=== PATIENT | male | born 1955 | race Caucasian/White ===

== ENCOUNTER → 2016-08-07 | Outpatient (CLI) | payer OTHER ==
[~2016-08-07] MED LIST: ASPI81TA28 PO; CRS5 PO; GLIM2TAB2 PO; GLUC10007 PO; LSN5 PO; METF1TAB85 PO; OMEG10007 PO; TPRSR50 PO
[2016-08-07 19:02] LABS: LYME DISEASE AB IGG NEG (NEG); LYME DISEASE AB IGM NEG (NEG)
== END | disposition home or self-care (01) ==
LOC: C.LABBC 14:59
PROVIDERS: ATTEND Internal Medicine
DX: S40.862A Insect bite (nonvenomous) of left upper arm, initial encounter (principal); W57.XXXA Bitten or stung by nonvenomous insect and other nonvenomous arthropods, initial encounter

== ENCOUNTER → 2016-11-11 | Outpatient (CLI) | payer OTHER ==
[2016-11-11 14:01] LABS: ESTIMATED AVERAGE GLUCOSE 146 mg/dl; HA1C FLAG Normal (Normal)
[2016-11-11 14:20] LABS: ALT/SGPT 37 U/L (12-78); AST/SGOT 12 U/L (15-37); BLOOD UREA NITROGEN 15 mg/dl (7-18); BUN/CREATININE RATIO 13.6 (10-20); CALCIUM 8.9 mg/dl (8.5-10.1); CARBON DIOXIDE 27 mmol/L (21-32); CHLORIDE 106 mmol/L (98-107); GLUCOSE 147 mg/dl (70-99); POTASSIUM 4.6 mmol/L (3.5-5.1); SODIUM 136 mmol/L (136-145)
[2016-11-11 14:25] LABS: ALB/GLOB RATIO 1.1 (0.9-2); ALKALINE PHOSPHATASE 64 U/L (45-117); CHOLESTEROL 210 mg/dl (0-200); CHOLESTEROL/HDL RATIO 4.2; HDL CHOLESTEROL 50 mg/dl; LDL CHOLESTEROL CALCULATED 132 mg/dl; TRIGLYCERIDES 141 mg/dl (0-150); VERY LOW DENSITY LIPOPROT CALC 28 mg/dl
== END | disposition home or self-care (01) ==
LOC: C.LABBC 09:39
PROVIDERS: ATTEND Internal Medicine
DX: E78.5 Hyperlipidemia, unspecified (principal); M79.1 Myalgia; E11.9 Type 2 diabetes mellitus without complications

== ENCOUNTER → 2017-02-18 | Outpatient (CLI) | payer OTHER ==
--- NOTE | 2017-02-18 10:52 | DIAGNOSTIC IMAGING REPORT ---
CHEST 2 VIEWS ROUTINE HISTORY: COUGH COMPARISON: Chest 12/20/2014. FINDINGS: Mild diffuse interstitial thickening which remains unchanged. Therefore, this is likely chronic. No new focal lung consolidations. No evidence for pulmonary edema.. Cardiac silhouette is top normal in size. No pleural effusions. No pneumothorax. IMPRESSION: No significant change compared to the prior study. No acute process. Electronically signed by: Erick Daley M.D. 02/18/2017 10:51 AM Dictated Date/Time: 02/18/2017 10:49 AM
== END | disposition home or self-care (01) ==
LOC: C.RADBC 10:34
PROVIDERS: ATTEND Nurse Practitioner Adult Health
DX: R05 Cough (principal)

== ENCOUNTER → 2017-03-04 | Outpatient (CLI) | payer OTHER ==
[2017-03-04 15:38] LABS: BASO % 0.3 %; BASO ABS # 0.03 K/uL (0-0.2); COMPLETE YES; EOS % 1.4 %; HEMATOCRIT 40.2 % (42-52); IG% 0.3 %; LYMPH % 22.5 %; LYMPH ABS # 2.21 K/uL (1.2-3.4); MEAN CELL VOLUME 92.8 fL (80-100); MEAN CORPUSCULAR HEMOGLOBIN 31.9 pg (25-34); MEAN CORPUSCULAR HGB CONC 34.3 g/dl (32-36); MEAN PLATELET VOLUME 8.8 fL (7.4-10.4); NEUT % 65.5 %; PLATELET COUNT 329 K/uL (130-400); RED BLOOD COUNT 4.33 M/uL (4.7-6.1); WHITE BLOOD COUNT 9.81 K/uL (4.8-10.8)
[2017-03-04 15:44] LABS: ALT/SGPT 27 U/L (12-78); BLOOD UREA NITROGEN 10 mg/dl (7-18); BUN/CREATININE RATIO 10.2 (10-20); CALCIUM 9.2 mg/dl (8.5-10.1); CARBON DIOXIDE 29 mmol/L (21-32); CHLORIDE 98 mmol/L (98-107); GLUCOSE 153 mg/dl (70-99); POTASSIUM 4.1 mmol/L (3.5-5.1); SODIUM 131 mmol/L (136-145)
[2017-03-04 15:48] LABS: ALB/GLOB RATIO 0.7 (0.9-2); ALKALINE PHOSPHATASE 81 U/L (45-117); AST/SGOT 14 U/L (15-37); RHEUMATOID FACTOR < 10.0 U/mL (0-15)
[2017-03-04 16:20] LABS: LYME DISEASE AB IGG NEG (NEG)
[2017-03-04 16:21] LABS: LYME DISEASE AB IGM POS (NEG)
[2017-03-05 06:41] LABS: ESTIMATED AVERAGE GLUCOSE 157 mg/dl; HA1C FLAG Normal (Normal)
== END | disposition home or self-care (01) ==
LOC: C.LABBC 10:36
PROVIDERS: ATTEND Internal Medicine
DX: G47.33 Obstructive sleep apnea (adult) (pediatric) (principal); S40.862A Insect bite (nonvenomous) of left upper arm, initial encounter; W57.XXXA Bitten or stung by nonvenomous insect and other nonvenomous arthropods, initial encounter

== ENCOUNTER → 2017-11-11 | Outpatient (CLI) | payer OTHER ==
[~2017-11-11] MED LIST changes: +LISI-730 PO; -LSN5 PO
[2017-11-11 13:12] LABS: BLOOD UREA NITROGEN 11 mg/dl (7-18); CREATININE 0.99 mg/dl (0.60-1.40)
== END | disposition home or self-care (01) ==
LOC: C.LABBC 11:36
PROVIDERS: ATTEND Physician Assistant
DX: H91.8X2 Other specified hearing loss, left ear (principal)

== ENCOUNTER 2024-10-25 21:11 | Inpatient (IN) ==
--- NOTE | 2024-10-25 21:31 | Emergency Department Note ---
Impression & Plan Acute hyponatremia, Transaminitis, Elevated bilirubin, Abdominal pain ED Provider Note NAME: LUIS AGUILAR AGE: 69 SEX: M : 1955 ARRIVES VIA: Walk-In INFORMANT: Patient ED PROVIDER(S): Deshaun Lara DO CHIEF COMPLAINT: Abdominal pain and jaundice HPI: Patient is a 69-year-old male with past medical history of diabetes and CA who presents to the ER for jaundice. Patient notes that he had a cholecystectomy last week. notes and provides additional history that patient was jaundice starting today. He has had some belly pain in the right upper quadrant off and on. Denies any headache or change in vision. No chest pain or shortness of breath. No dysuria, urgency or frequency. No other exacerbating or remitting factors. ADDITIONAL HISTORY OBTAINED: Per HPI Chronic Medical/Social Conditions Affecting Care: Per HPI PAST MEDICAL HISTORY:See Below PAST SURGICAL HISTORY:See Below FAMILY HISTORY:See Below SOCIAL HISTORY:See Below HOME MEDICATIONS:See Below ALLERGIES:See Below VITALS:See Below PHYSICAL EXAMINATION: GENERAL: Sitting up in bed, alert, diffuse jaundice EYE EXAM: Scleral icterus OROPHARYNX: no exudate, no erythema, lips, buccal mucosa, and tongue normal and mucous membranes are moist NECK: supple, no nuchal rigidity, no adenopathy, non-tender LUNGS: Clear to auscultation. Normal chest wall mechanics HEART: no murmurs, S1 normal and S2 normal ABDOMEN: abdomen soft, mild diffuse tenderness. Incisions are clean dry and intact, normo-active bowel sounds, no masses, no rebound or guarding. UPPER EXTREMITIES: upper extremities are grossly normal. LOWER EXTREMITIES: No pitting edema. NEURO EXAM: Normal sensorium, cranial nerves II-XII grossly intact, normal speech, no gross weakness of arms, no gross weakness of legs. MEDICAL DECISION MAKING: Patient is a 69-year-old male who presents ER for elevated bilirubin. He is status post lap juanpablo performed by Dr. Raya last week. Noticed that he is currently jaundiced consult and came in. Had some worsening abdominal pain. Bilirubin is elevated around 17. LFTs elevated around 500. Sodium was low at 122. No significant leukocytosis. Discussed with general surgery they recommended MRCP and likely transfer. Discussed with GI and they recommended transfer. Patient was given a dose of Zosyn although I do not believe patient is infected at this time but given prophylactically. Discussed with the patient and they would prefer to go to [facility]. Consults at [facility] GI Dr. Pacheco who agreed the patient needs to be transferred as there is no ERCP capabilities here. Discussed with Dr. Levy from the hospital service at [facility] and patient was accepted. Per the transfer center there will be no beds tonight. Patient was updated at bedside. Patient will be admitted to the hospital service and transferred later tomorrow when beds are present. Consults/Care Managements Discussions: Per MDM Triage Nursing notes reviewed. Limited review of prior medical records performed Vital Signs: reviewed and remarkable for HTN Differential diagnosis: Differential diagnoses includes but is not limited to gastritis, peptic ulcer disease, GERD, gallbladder disease, pancreatitis, small bowel obstruction, appendicitis, diverticulitis, hernia, urinary tract infection, torsion, perforation, trauma, infectious. ER treatment provided: See below Diagnostics interpreted by me include EKG and cardiac monitoring as listed below: -Cardiac Monitoring: An order was placed for continuous cardiac monitoring. The monitor shows a rate of 70 with sinus rhythm. -ECG: none -Laboratory studies:Interpreted by me as stated above in MDM and shown below. Imaging studies: Xrays: As interpreted by me:none CTs show: CT of the abdomen pelvis per my pleurae interpretation shows no obvious bowel obstruction CT abdomen pelvis per radiologist described above Procedures:none Critical Care: None Past Med/Surg History Problem List (Updated 10/26/24 @ 01:02 by Deshaun Lara DO) Abdominal pain (Acute) Elevated bilirubin (Acute) Transaminitis (Acute) Acute hyponatremia (Acute) History of cholecystectomy Cholelithiasis Encounter for pre-operative examination Transaminitis (Acute) Abnormal CT scan, gallbladder Abdominal bruit Noted by cardiology - had subsequent aorti-iliac arterial duplex 08/10/24- showed 3.3 x 3.4cm AAA, no stenosis or obstruction observed in Ao-iliac system Microalbuminuria History of radiation to head and neck region History of squamous cell carcinoma Left knee pain Left hip pain Type 2 diabetes mellitus Obstructive sleep apnea cpap Anemia, unspecified ASCVD (arteriosclerotic cardiovascular disease) Inferior CA 2014--follows with Dr. Saldaña Hyperlipidemia History of colon polyps Medical History (Updated 10/26/24 @ 01:02 by Deshaun Lara DO) AAA (abdominal aortic aneurysm) Aorti-iliac arterial duplex 08/10/24- showed 3.3 x 3.4cm AAA, no stenosis or obstruction observed in Ao-iliac system Chronic hyponatremia Choledocholithiasis - Admitted to [facility] as transfer from [facility]- ERCP 10/05/24 at [facility]- per [facility] records- recommending outpatient juanpablo Hyperlipidemia Hx of myocardial infarction (2014) 2015--heart cath, no stents-follows with Dr. Saldaña ASCVD (arteriosclerotic cardiovascular disease) follows w/ Dr Saldaña- had recent echo 09/27/2024 History of anemia denies current issues JULIO CESAR (obstructive sleep apnea) states lost weight after cancer treatments, so has resolved but still uses CPAP Diabetes well controlled, last A1C 5.8, per patient History of radiation to head and neck region (2020) 33 treatments Seasonal allergies reason for prn inhaler, rare use prn inhaler - last used 2 years ago Changing skin lesion Squamous cell carcinoma of oropharynx (2020) hx- 2020- s/p chemo XRT Dry mouth severe dry mouth s/p chemotherapy & radiation treatments. - current History of chemotherapy (01/2021) January 2021. Allergic rhinitis History of anesthesia reaction - difficulty waking - ERCP (10/05/24) - had 3 days of feeling "off balance"- has now resolved Osteoarthritis Sensorineural hearing loss (SNHL) of both ears Eczema occ flares Asymmetrical left sensorineural hearing loss Surgical History (Updated 10/26/24 @ 00:45 by Tyesha Eugene PA-C) Hx of endoscopic retrograde cholangiopancreatography (10/05/24) [facility]- states took over 2 hours as difficulty getting to bile duct- afterwards, had balance issue for a few days after, has now resolved History of cataract surgery (2021) Right/Left History of cardiac cath (~12/21/14) CA-@ [facility]--no stents- follows with dr. saldaña History of tooth extraction on prophylactic abx every other day since 12/2023 ( last dental extraction) History of hydrocelectomy as a child History of colonoscopy with polypectomy (08/26/24) History of wisdom tooth extraction Family History Unknown Unknown family medical history Mother Myocardial infarction Diabetes Father No problems noted. Other Adopted Social History (Updated 10/17/24 @ 06:58 by Porsche Mendoza CRNA) Smoking Status: Never smoker Tobacco Type: Cigarettes Cigarettes Per Day: smokes a pipe- advised; Second Hand Exposure: No; Do You Dip or Chew Tobacco: No; Hx Alcohol Use: Yes Alcohol type: beer Alcohol Intake Frequency: 4 or More x per/Week Hx Substance Use: No Preferred Language: Kazakh Communication Ability: Effective Visual Impairment: Limited Hearing Ability: Normal Skein Washer Required: No Beliefs That Will Affect Care: None marital status: Current Living Situation: Spouse current occupational status: retired current occupation: customer service How many Children do You have: 0 Feels Safe at Home: Yes Childhood Exposure to Second-Hand Smoke: Yes Diet: regular caffeine: Yes during the past year weight has: decreased > 10 lbs Dental Care, Regularly: Yes Physical Activity Frequency: 3-4 Times per Week Seatbelt Use: always Sunscreen Use: No Assistive Devices: Glasses Allergies Allergies Allergy/AdvReac Type Severity Reaction Status Date / Time atorvastatin AdvReac Intermediate MYALGIA Verified 10/12/24 12:14 rosuvastatin AdvReac Intermediate myalgia Verified 10/12/24 12:14 simvastatin AdvReac Intermediate MYALGIA Verified 10/12/24 12:14 Home Meds Home Medications Medication Instructions Recorded Confirmed aspirin 81 mg tablet 81 mg PO QAM #30 tabs 10/20/18 10/26/24 cetirizine 10 mg capsule (Zyrtec) 10 mg PO HS 10/20/18 10/26/24 coenzyme Q10 100 mg capsule 100 mg PO QAM 10/20/18 10/26/24 triamcinolone acetonide 55 mcg 2 sprays intranasal 06/02/19 10/26/24 nasal spray aerosol (Nasacort) pravastatin 40 mg tablet 40 - 80 mg PO QAM 10/12/24 10/26/24 ezetimibe 10 mg tablet (Zetia) 10 mg PO QAM 10/17/24 10/26/24 whizkramtah-ufb-ihumkyikf-vitC 1 cap PO QPM 10/26/24 10/26/24 capsule (Glucosamine Complex-MSM capsule) omega-3 fatty acids 1,000 mg 1,000 mg PO QPM 10/26/24 10/26/24 capsule Previous Rx's Medication Instructions Recorded CPAP Machine #1 ea 06/05/22 albuterol sulfate 90 mcg/actuation 2 puff inhalation Q6H PRN 08/02/24 aerosol inhaler shortness of breath or wheezing #8.5 grams nitroglycerin 0.4 mg sublingual 0.4 mg sublingual Q5M PRN chest 08/02/24 tablet pain #25 tabs CPAP Supplies #1 ea 08/04/24 metformin 500 mg tablet,extended 1,000 mg (2 x 500 mg) PO BID 90 08/31/24 release 24 hr days #360 tabs metoprolol succinate 100 mg 100 mg PO QAM #90 tabs 10/04/24 tablet,extended release 24 hr Results & Data (ED) Vital Signs Vital Signs - 24 hr 10/25/24 21:13 10/25/24 21:21 10/25/24 21:24 Temperature 36.5 C 36.8 C Temperature Source Temporal Artery Scan Oral Pulse Rate 70 71 Pulse Rate [Right Finger] 69 Pulse Rate from SpO2 Sensor Pulse Rhythm Regular Regular Pulse Rhythm [Right Finger] Regular Pulse Strength Normal Respiratory Rate 20 16 16 Respiratory Effort / Characteristics Non-Labored Spontaneous Respiratory Depth Normal Normal Respiratory Pattern Regular Blood Pressure 154/71 H Blood Pressure [Right Arm] 156/73 H Blood Pressure Mean 98 Blood Pressure Mean [Right Arm] 100 Blood Pressure Position Sitting Pulse Oximetry 99 99 100 Oxygen Delivery Method Room Air Room Air Room Air Sepsis Recent Fever Within 48 Hours No Sepsis New/Unexplained Change in Mental Status No Sepsis Action Taken by Nursing No Action Required 10/25/24 21:35 10/25/24 22:57 10/25/24 23:00 Temperature Temperature Source Pulse Rate 68 63 Pulse Rate [Right Finger] Pulse Rate from SpO2 Sensor 63 Pulse Rhythm Pulse Rhythm [Right Finger] Pulse Strength Respiratory Rate 19 Respiratory Effort / Characteristics Respiratory Depth Respiratory Pattern Blood Pressure 136/71 Blood Pressure [Right Arm] Blood Pressure Mean 85 Blood Pressure Mean [Right Arm] Blood Pressure Position Pulse Oximetry 99 Oxygen Delivery Method Room Air Sepsis Recent Fever Within 48 Hours Sepsis New/Unexplained Change in Mental Status Sepsis Action Taken by Nursing 10/26/24 00:01 10/26/24 00:15 Temperature Temperature Source Pulse Rate 63 Pulse Rate [Right Finger] Pulse Rate from SpO2 Sensor 63 Pulse Rhythm Pulse Rhythm [Right Finger] Pulse Strength Respiratory Rate 19 Respiratory Effort / Characteristics Respiratory Depth Respiratory Pattern Blood Pressure 134/69 Blood Pressure [Right Arm] Blood Pressure Mean 74 Blood Pressure Mean [Right Arm] Blood Pressure Position Pulse Oximetry 99 Oxygen Delivery Method Room Air Sepsis Recent Fever Within 48 Hours Sepsis New/Unexplained Change in Mental Status Sepsis Action Taken by Nursing Laboratory Data 10/25/24 21:35 10/25/24 21:35 Lab Results 10/25/24 10/25/24 10/25/24 Range/Units 21:35 21:42 Unknown WBC 6.00 (4.8-10.8) K/ul RBC 4.15 L (4.70-6.10) M/uL Hgb 13.5 L (14.0-18.0) g/dl POC Hgb 15.0 (14.0-18.0) g/dl Hct 36.0 L (42.0-52.0) % POC Hct 44 (42-52) % MCV 86.7 (80.0-100.0) fL MCH 32.5 (25.0-34.0) pg MCHC 37.5 H (32.0-36.0) g/dL RDW Std Deviation 48.2 H (36.4-46.3) fL RDW Coeff of Aminata 15.2 H (11.5-14.5) % Plt Count 375 (130-400) K/uL MPV 8.5 L (9.4-12.4) fL Immature Gran % (Auto) 1.7 % Neut % (Auto) 73.3 % Lymph % (Auto) 6.7 % Walsh % (Auto) 13.3 % Eos % (Auto) 5.0 % Baso % (Auto) 0.0 % Neut # (Auto) 4.40 (1.40-6.50) K/uL Lymph # (Auto) 0.40 L (1.20-3.40) K/uL Walsh # (Auto) 0.80 H (0.11-0.59) K/uL Eos # (Auto) 0.30 (0.00-0.50) K/uL Baso # (Auto) 0.00 (0.00-0.20) K/uL Immature Gran # (Auto) 0.10 (0.01-0.20) K/uL Anisocytosis Present Target Cells 1+ POC Sodium 123 L (135-144) mmol/L Sodium 122 L (136-145) mmol/L POC Potassium 4.6 (3.3-5.0) mmol/L Potassium 4.6 (3.5-5.1) mmol/L POC Chloride 89 L (101-112) mmol/L Chloride 87 L (98-107) mmol/L Carbon Dioxide 24 (21-32) mmol/L POC Total CO2 25 (24-31) mmol/L Anion Gap 11 (3-11) POC Anion Gap 15.0 L (16-25) mmol/L POC BUN 19 H (7-18) mg/dl BUN 18 (6-23) mg/dl Creatinine 0.95 (0.6-1.4) mg/dl POC Creatinine 0.9 (0.6-1.3) mg/dl Est Cr Clr Drug Dosing 81.1 ml/min eGFR 86.11 BUN/Creatinine Ratio 18.9 (10-20) Glucose 162 H (70-99(Fasting)) mg/dl POC Glucose (other) 156 H (70-99) mg/dl Calcium 9.5 (8.6-10.3) mg/dl POC Ioniz Calcium Macario 1.17 (1.12-1.32) mmol/l Total Bilirubin 16.8 H (0.2-1.0) mg/dl AST 436 H (13-39) U/L ALT 589 H (7-52) U/L Alkaline Phosphatase 1218 H (34-104) U/L Total Protein 6.8 (6.0-8.3) gm/dl Albumin 3.7 (3.4-5.0) gm/dl Globulin 3.1 (2.5-4.0) gm/dl Albumin/Globulin Ratio 1.2 (0.9-2) Lipase TNP Urine Comment Administered Medications Discontinued Medications Ioversol (Optiray 320 100ml) 90 ml IV ONCE ONE Stop: 10/25/24 22:03 Last Admin: 10/25/24 22:03 Dose: 90 ml Documented By: OTILIA Imaging Data Radiologist's Impression: Abdomen/Pelvis CT 10/25/24 21:25 Exam(s): CT ABDOMEN + PELVIS With Contrast IV Amt: 90 ml optiray 320 EXAM: CT Abdomen and Pelvis With Intravenous Contrast CLINICAL HISTORY: Reason for exam: post op pain. TECHNIQUE: Axial computed tomography images of the abdomen and pelvis with intravenous contrast. CTDI is 26.14 mGy and DLP is 1236.28 mGy-cm. Automated exposure control was utilized for the study. A dose lowering technique was utilized adhering to the principles of ALARA. CONTRAST: Patient received 90 ml optiray 320 of IV contrast COMPARISON: 10/04/2024 FINDINGS: Lung bases: Unremarkable. No mass. No consolidation. ABDOMEN: Liver: Unremarkable. No mass. Gallbladder and bile ducts: Postop changes prior cholecystectomy this is new when compared with the prior exam. There is intra and extrahepatic biliary ductal dilatation which is greater than expected given the patient's operative state. The common bile duct measures 1.5 cm. Hyperdense material seen within the proximal duodenum may represent surgical clips. Pancreas: Unremarkable. No mass. No ductal dilation. Spleen: Unremarkable. No splenomegaly. Adrenals: Unremarkable. No mass. Kidneys and ureters: Unremarkable. No solid mass. No hydronephrosis. Stomach and bowel: There are number of fluid-filled hyperemic loops of small bowel within the right lower quadrant. No obstruction. No mucosal thickening. PELVIS: Appendix: No findings to suggest acute appendicitis. Bladder: Unremarkable. No mass. Reproductive: Enlarged partially calcified prostate. ABDOMEN and PELVIS: Intraperitoneal space: Unremarkable. No free air. No significant fluid collection. Bones/joints: No acute fracture. No dislocation. Soft tissues: Unremarkable. Vasculature: 3.6 cm infrarenal abdominal aortic aneurysm. Lymph nodes: Unremarkable. No enlarged lymph nodes. IMPRESSION: Postoperative changes interval gallbladder resection with greater than expected distention of the intra and extra hepatic bile ducts. There is the suggestion of subtle narrowing of the distal common bile duct near the ampulla with numerous surgical clips seen within the proximal duodenum. MRCP may be helpful for further evaluation to exclude obstructing stone 3.6 cm infrarenal abdominal aortic aneurysm unchanged from prior study Numerous hyperemic fluid-filled loops of small bowel within the right lower quadrant. Findings may represent enteritis in the appropriate clinical setting . Electronically signed by: Deshaun Beal MD 10/25/24 23:23 PM Discharge Plan Visit Data Chief Complaint: Illness Stated Complaint: JAUNDICE, ABD PAIN ED Provider: Deshaun Lara Discharge Problem: Acute hyponatremia, Transaminitis, Elevated bilirubin, Abdominal pain Condition: Fair Forms Stand Alone Forms: My [facility] Prescriptions Prescriptions: No Action (DME) CPAP Machine Misc See Rx Instructions .ROUTE .MEDSUPPLY Qty: 1 0RF Rx Instructions: AUTO CPAP 4-15CM WATER PRESSURE; DX: G47.33; LENGTH OF NEED: 99MONTHS (DME) CPAP Supplies Misc See Rx Instructions .Route Qty: 1 0RF Rx Instructions: As directed metformin 500 mg tablet extended release 24 hr 1,000 mg PO BID 90 Days Qty: 360 3RF aspirin 81 mg tablet 81 mg PO QAM Qty: 30 coenzyme Q10 100 mg capsule 100 mg PO QAM Zyrtec 10 mg capsule 10 mg PO HS triamcinolone acetonide [Nasacort] 55 mcg aerosol,spray 2 sprays INTNAS HS albuterol sulfate 90 mcg/actuation HFA aerosol inhaler 2 puff inhalation Q6H PRN (Reason: shortness of breath or wheezing) Qty: 8.5 2RF nitroglycerin 0.4 mg tablet, sublingual 0.4 mg sublingual Q5M PRN (Reason: chest pain) Qty: 25 5RF metoprolol succinate 100 mg tablet extended release 24 hr 100 mg PO QAM Qty: 90 3RF pravastatin 40 mg tablet 40 - 80 mg PO QAM Rx Instructions: 1 pill alternating with 2 pills every other day PO daily in the morning; 2 TABS ON // 1 TAB ALL OTHER DAYS ezetimibe [Zetia] 10 mg tablet 10 mg PO QAM Glucosamine Complex-MSM Capsule 1 cap PO QPM omega-3 fatty acids 1,000 mg Capsule 1,000 mg PO QPM Referrals Referrals: Elida Rogers DO [Primary Care Provider] - Discharge Problem: Abdominal pain Qualifiers: Abdominal location: unspecified location Qualified Code(s): R10.9 - Unspecified abdominal pain
[2024-10-25] MEDS: OPTIRAY 320 100ml IV ONE (22:03)
[2024-10-25 22:25] LABS: Hematocrit (blood only) 36.0 % (42.0-52.0); Hemoglobin 13.5 g/dl (14.0-18.0); Mean Corpuscular Hemoglobin 32.5 pg (25.0-34.0); Mean Corpuscular Volume 86.7 fL (80.0-100.0); Platelet Count 375 K/uL (130-400); RDW Standard Deviation 48.2 fL (36.4-46.3); Red Blood Count 4.15 M/uL (4.70-6.10); White Blood Count 6.00 K/ul (4.8-10.8)
[2024-10-25 22:28] LABS: Anisocytosis Present; Immature Granulocytes # (auto) 0.10 K/uL (0.01-0.20); Immature Granulocytes % (auto) 1.7 %; Target Cells 1+
[2024-10-25 23:16] LABS: Albumin Globulin Ratio 1.2 (0.9-2); Alkaline Phosphatase 1218 U/L (34-104); Anion Gap 11 (3-11); Bilirubin,Total 16.8 mg/dl (0.2-1.0); Blood Urea Nitrogen 18 mg/dl (6-23); Calcium 9.5 mg/dl (8.6-10.3); Carbon Dioxide 24 mmol/L (21-32); Chloride 87 mmol/L (98-107); Creatinine Clr Calc Pharmacy 81.1 ml/min; Globulin 3.1 gm/dl (2.5-4.0); Glucose 162 mg/dl (70-99(Fasting)); Potassium 4.6 mmol/L (3.5-5.1); Sodium 122 mmol/L (136-145); Total Protein 6.8 gm/dl (6.0-8.3)
--- NOTE | 2024-10-25 23:24 | CT Scan Report ---
Exam(s): CT ABDOMEN + PELVIS With Contrast IV Amt: 90 ml optiray 320 EXAM: CT Abdomen and Pelvis With Intravenous Contrast CLINICAL HISTORY: Reason for exam: post op pain. TECHNIQUE: Axial computed tomography images of the abdomen and pelvis with intravenous contrast. CTDI is 26.14 mGy and DLP is 1236.28 mGy-cm. Automated exposure control was utilized for the study. A dose lowering technique was utilized adhering to the principles of ALARA. CONTRAST: Patient received 90 ml optiray 320 of IV contrast COMPARISON: 10/04/2024 FINDINGS: Lung bases: Unremarkable. No mass. No consolidation. ABDOMEN: Liver: Unremarkable. No mass. Gallbladder and bile ducts: Postop changes prior cholecystectomy this is new when compared with the prior exam. There is intra and extrahepatic biliary ductal dilatation which is greater than expected given the patient's operative state. The common bile duct measures 1.5 cm. Hyperdense material seen within the proximal duodenum may represent surgical clips. Pancreas: Unremarkable. No mass. No ductal dilation. Spleen: Unremarkable. No splenomegaly. Adrenals: Unremarkable. No mass. Kidneys and ureters: Unremarkable. No solid mass. No hydronephrosis. Stomach and bowel: There are number of fluid-filled hyperemic loops of small bowel within the right lower quadrant. No obstruction. No mucosal thickening. PELVIS: Appendix: No findings to suggest acute appendicitis. Bladder: Unremarkable. No mass. Reproductive: Enlarged partially calcified prostate. ABDOMEN and PELVIS: Intraperitoneal space: Unremarkable. No free air. No significant fluid collection. Bones/joints: No acute fracture. No dislocation. Soft tissues: Unremarkable. Vasculature: 3.6 cm infrarenal abdominal aortic aneurysm. Lymph nodes: Unremarkable. No enlarged lymph nodes. IMPRESSION: Postoperative changes interval gallbladder resection with greater than expected distention of the intra and extra hepatic bile ducts. There is the suggestion of subtle narrowing of the distal common bile duct near the ampulla with numerous surgical clips seen within the proximal duodenum. MRCP may be helpful for further evaluation to exclude obstructing stone 3.6 cm infrarenal abdominal aortic aneurysm unchanged from prior study Numerous hyperemic fluid-filled loops of small bowel within the right lower quadrant. Findings may represent enteritis in the appropriate clinical setting . Electronically signed by: Deshaun Beal MD 10/25/24 23:23 PM
[2024-10-25 23:43] LABS: Alanine Aminotransferase 589 U/L (7-52)
--- NOTE | 2024-10-26 00:55 | Surgery Consultation ---
Date of Consultation October 26, 2024 Assessment & Plan (1) Transaminitis: Patient is a 69-year-old male who recently underwent ERCP at [facility]. From chart review, the EUS did show hyperechoic stones in the CBD and an ERCP was attempted however the biliary tree was not able to be cannulated due to larger periampullary diverticulum and possible CBD stricturing. He underwent an additional MRCP which did not show any choledocholithiasis, and was ultimately sent to outpatient general surgery for elective cholecystectomy. He underwent operative intervention on 10/17/[address] Cuello. No intraoperative complications reported and the patient was sent home. The patient presented to the emergency department due to new onset of jaundice. Patient was worked up in the emergency department and was found to have elevated LFTs (Tbili 16.8, AST 436, ALT 589, alk phos 1218) and CT imaging concerning for distention of the intra and extrahepatic bile ducts along with possible subtle narrowing of the distal common bile duct. Discussed patient's case with Emergency room provider, and the patient will need to undergo MRCP to evaluate for possible retained stone and he would need a GI consult for possible ERCP. Due to our facility not having ERCP capabilities at this time, the patient was accepted to be transferred to [facility] for further workup and evaluation. Unfortunately due to bed availability the patient will not be transferred until tomorrow so for now he will be admitted to the medical service here and surgery will continue to follow until transfer. (2) History of cholecystectomy: History of Present Illness Reason for Consultation: jaundice History of Present Illness The patient is a 69-year-old male who presented to the emergency department for complaints of jaundice that started today. Of note, the patient recently underwent cholecystectomy on 10/17/[address] Cuello. Per chart review, the patient had no intraoperative complications and was sent home the same day. Prior to surgery, the patient was originally seen to our facility on 10/04/2024 and was referred by his PCP due to abnormal LFTs. Upon workup at that time it was suspected that the patient had choledocholithiasis, and unfortunately due to no ERCP capabilities at our facility he was transferred and treated at [facility] by GI. He did undergo ERCP at their facility, and per chart review EUS did show hyperechoic stones in the CBD. ERCP was attempted however biliary tree was not able to be cannulated due to larger periampullary diverticulum and possible CBD stricturing. Due to this, he did undergo another MRCP which did not show any choledocholithiasis, and was ultimately sent to outpatient general surgery for elective cholecystectomy. Patient states that after surgery he has not had much of an appetite but denies any nausea or vomiting. He does have some intermittent abdominal pain at times, however is tolerable with Tylenol. The patient states that his jaundice started today which ultimately prompted him to come to the emergency department for further evaluation. Upon workup in the ED patient was found to have elevated LFTs (Tbili 16.8, AST 436, ALT 589, alk phos 1218) and CT imaging concerning for distention of the intra and extrahepatic bile ducts along with possible subtle narrowing of the distal common bile duct. Due to recent surgery, along with these findings general surgery was consulted for further evaluation. Patient was seen and evaluated at bedside in the emergency department. He is resting comfortably in bed, vital signs stable, and is nontoxic-appearing. Patient with diffuse jaundice, abdomen is soft with appropriate TTP over his surgical sites. Dermabond in place over incisiosn and sites healing appropriately. Allergies Allergy/AdvReac Type Severity Reaction Status Date / Time atorvastatin AdvReac Intermediate MYALGIA Verified 10/12/24 12:14 rosuvastatin AdvReac Intermediate myalgia Verified 10/12/24 12:14 simvastatin AdvReac Intermediate MYALGIA Verified 10/12/24 12:14 Home Medications Medication Instructions Recorded Confirmed Type aspirin 81 mg tablet 81 mg PO QAM #30 tabs 10/20/18 10/26/24 History cetirizine 10 mg capsule (Zyrtec) 10 mg PO HS 10/20/18 10/26/24 History coenzyme Q10 100 mg capsule 100 mg PO QAM 10/20/18 10/26/24 History triamcinolone acetonide 55 mcg 2 sprays intranasal HS 06/02/19 10/26/24 History nasal spray aerosol (Nasacort) CPAP Machine #1 ea 06/05/22 10/26/24 Rx albuterol sulfate 90 mcg/actuation 2 puff inhalation Q6H PRN 08/02/24 10/26/24 Rx aerosol inhaler shortness of breath or wheezing #8.5 grams nitroglycerin 0.4 mg sublingual 0.4 mg sublingual Q5M PRN chest 08/02/24 10/26/24 Rx tablet pain #25 tabs CPAP Supplies #1 ea 08/04/24 10/26/24 Rx metformin 500 mg tablet,extended 1,000 mg (2 x 500 mg) PO BID 90 08/31/24 10/26/24 Rx release 24 hr days #360 tabs metoprolol succinate 100 mg 100 mg PO QAM #90 tabs 10/04/24 10/26/24 Rx tablet,extended release 24 hr pravastatin 40 mg tablet 40 - 80 mg PO QAM 10/12/24 10/26/24 History ezetimibe 10 mg tablet (Zetia) 10 mg PO QAM 10/17/24 10/26/24 History xpjdupenfcp-lvo-pgrujswua-vitC 1 cap PO QPM 10/26/24 10/26/24 History capsule (Glucosamine Complex-MSM capsule) omega-3 fatty acids 1,000 mg 1,000 mg PO QPM 10/26/24 10/26/24 History capsule Patient History Medical History AAA (abdominal aortic aneurysm) Aorti-iliac arterial duplex 08/10/24- showed 3.3 x 3.4cm AAA, no stenosis or obstruction observed in Ao-iliac system Chronic hyponatremia Choledocholithiasis - Admitted to [facility] as transfer from [facility]- [facility] records- recommending outpatient juanpablo Hyperlipidemia Hx of myocardial infarction (2014) 2015--heart cath, no stents-follows with Dr. Mclaughlin ASCVD (arteriosclerotic cardiovascular disease) follows w/ Dr Mclaughlin- had recent echo 09/27/2024 History of anemia denies current issues JULIO CESAR (obstructive sleep apnea) states lost weight after cancer treatments, so has resolved but still uses CPAP Diabetes well controlled, last A1C 5.8, per patient History of radiation to head and neck region (2020) 33 treatments Seasonal allergies reason for prn inhaler, rare use prn inhaler - last used 2 years ago Changing skin lesion Squamous cell carcinoma of oropharynx (2020) hx- 2020- s/p chemo XRT Dry mouth severe dry mouth s/p chemotherapy & radiation treatments. - current History of chemotherapy (01/2021) January 2021. Allergic rhinitis History of anesthesia reaction - difficulty waking - ERCP (10/05/24) - had 3 days of feeling "off balance"- has now resolved Osteoarthritis Sensorineural hearing loss (SNHL) of both ears Eczema occ flares Asymmetrical left sensorineural hearing loss Surgical History Hx of endoscopic retrograde cholangiopancreatography (10/05/24) sixtolou attila- states took over 2 hours as difficulty getting to bile duct- afterwards, had balance issue for a few days after, has now resolved History of cataract surgery (2021) Right/Left History of cardiac cath (~12/21/14) NH-@ [facility]--no stents- follows with dr. mclaughlin History of tooth extraction on prophylactic abx every other day since 12/2023 ( last dental extraction) History of hydrocelectomy as a child History of colonoscopy with polypectomy (08/26/24) History of wisdom tooth extraction Family History Unknown Unknown family medical history Mother Myocardial infarction Diabetes Father No problems noted. Other Adopted Social History Smoking Status: Never smoker Tobacco Type: Cigarettes Cigarettes Per Day: smokes a pipe- advised; Second Hand Exposure: No; Do You Dip or Chew Tobacco: No; Hx Alcohol Use: Yes Alcohol type: beer Alcohol Intake Frequency: 4 or More x per/Week Hx Substance Use: No Preferred Language: Wolof Communication Ability: Effective Visual Impairment: Limited Hearing Ability: Normal Computer Customer Support Specialist Required: No Beliefs That Will Affect Care: None marital status: Current Living Situation: Spouse current occupational status: retired current occupation: customer service How many Children do You have: 0 Feels Safe at Home: Yes Childhood Exposure to Second-Hand Smoke: Yes Diet: regular caffeine: Yes during the past year weight has: decreased > 10 lbs Dental Care, Regularly: Yes Physical Activity Frequency: 3-4 Times per Week Seatbelt Use: always Sunscreen Use: No Assistive Devices: Glasses Review of Systems Constitutional: no fever, no chills and no body aches Respiratory: no cough, no chest congestion and no dyspnea Cardiovascular: no chest pain, no palpitations and no syncope Gastrointestinal: as per Subjective / HPI Genitourinary: no difficulty urinating, no urinary hesitancy or no hematuria Integumentary: + change in skin color (diffuse jaundice ) Physical Exam Constitutional: WD/WN, vitals as above Respiratory: normal respiratory effort, lungs clear to auscultation Cardiovascular: Rate/Rhythm: regular rate Gastrointestinal (Abdomen): Abdomen soft, nondistended, +appropriate TTP over surgical sites. Incisions with Dermabond in place, c/d/i without overlying signs of infection Large area of ecchymosis noted over lower abdominal region Skin: + jaundice Psychiatric: A+Ox3, euthymic affect Results & Data Vital Signs (Past 12 Hours) Vital Signs Temp Pulse Pulse Resp BP BP Pulse Ox 10/26/24 00:15 63 19 99 10/26/24 00:01 134/69 10/25/24 23:00 136/71 10/25/24 22:57 63 19 99 10/25/24 21:35 68 10/25/24 21:24 71 16 100 10/25/24 21:21 36.8 C 69 16 156/73 H 99 10/25/24 21:13 36.5 C 70 20 154/71 H 99 O2 Del Method 10/26/24 00:15 Room Air 10/26/24 00:01 10/25/24 23:00 10/25/24 22:57 Room Air 10/25/24 21:35 10/25/24 21:24 Room Air 10/25/24 21:21 Room Air 10/25/24 21:13 Room Air Diagnostic Findings Exam(s): CT ABDOMEN + PELVIS With Contrast IV Amt: 90 ml optiray 320 EXAM: CT Abdomen and Pelvis With Intravenous Contrast CLINICAL HISTORY: Reason for exam: post op pain. TECHNIQUE: Axial computed tomography images of the abdomen and pelvis with intravenous contrast. CTDI is 26.14 mGy and DLP is 1236.28 mGy-cm. Automated exposure control was utilized for the study. A dose lowering technique was utilized adhering to the principles of ALARA. CONTRAST: Patient received 90 ml optiray 320 of IV contrast COMPARISON: 10/04/2024 FINDINGS: Lung bases: Unremarkable. No mass. No consolidation. ABDOMEN: Liver: Unremarkable. No mass. Gallbladder and bile ducts: Postop changes prior cholecystectomy this is new when compared with the prior exam. There is intra and extrahepatic biliary ductal dilatation which is greater than expected given the patient's operative state. The common bile duct measures 1.5 cm. Hyperdense material seen within the proximal duodenum may represent surgical clips. Pancreas: Unremarkable. No mass. No ductal dilation. Spleen: Unremarkable. No splenomegaly. Adrenals: Unremarkable. No mass. Kidneys and ureters: Unremarkable. No solid mass. No hydronephrosis. Stomach and bowel: There are number of fluid-filled hyperemic loops of small bowel within the right lower quadrant. No obstruction. No mucosal thickening. PELVIS: Appendix: No findings to suggest acute appendicitis. Bladder: Unremarkable. No mass. Reproductive: Enlarged partially calcified prostate. ABDOMEN and PELVIS: Intraperitoneal space: Unremarkable. No free air. No significant fluid collection. Bones/joints: No acute fracture. No dislocation. Soft tissues: Unremarkable. Vasculature: 3.6 cm infrarenal abdominal aortic aneurysm. Lymph nodes: Unremarkable. No enlarged lymph nodes. IMPRESSION: Postoperative changes interval gallbladder resection with greater than expected distention of the intra and extra hepatic bile ducts. There is the suggestion of subtle narrowing of the distal common bile duct near the ampulla with numerous surgical clips seen within the proximal duodenum. MRCP may be helpful for further evaluation to exclude obstructing stone 3.6 cm infrarenal abdominal aortic aneurysm unchanged from prior study Numerous hyperemic fluid-filled loops of small bowel within the right lower quadrant. Findings may represent enteritis in the appropriate clinical setting PG Care Time/CCT Total # of Minutes Spent Total Time Spent with Patient: Total time spent is greater than 50% in coordination of care (as documented) at patient's floor/unit and/or counseling patient: [place] [address] Office/OBS Consult Lvl 1 Patient Type New History Problem Focused Exam Problem Focused Medical Decision Making Straight Forward Diagnoses Transaminitis R74.01 History of cholecystectomy Z90.49
[2024-10-26] MEDS: PIPERACILLIN/TAZOBACTAM 4.5 GM/100 ML BAG IV ONE (01:23)
--- NOTE | 2024-10-26 01:28 | History & Physical Report ---
Date of Service October 26, 2024 Assessment & Plan (1) Elevated bilirubin: (2) Transaminitis: (3) Acute hyponatremia: (4) History of cholecystectomy: (5) Type 2 diabetes mellitus: (6) Obstructive sleep apnea: (7) Hyperlipidemia: Plan 69yo male with history of DM, HLP, CAD, recent laparoscopic cholecystectomy performed on 10/17/24 presenting with jaundice/icterus and hyponatremia. #Elevated bilirubin/Transaminitis/Recent laparoscopic cholecystectomy - Tbili=16.8, Dbili=11.8, QG=5663, OHC=984 and XQE=567. Patient with recent cholecystectomy. CT findings as above with dilation of the intra and extra hepatic bile ducts with numerous surgical clips present in the proximal duodenum. -Admit to medical with telemetry -Obtain MCRP -Keep NPO for now -LR at 100mL/hr x 2L ordered -Zofran PRN nausea -Zosyn 4.5gm IV q 8 hours -Repeat LFTs in AM -Appreciate General Surgery assistance -Patient has been accepted to [facility] in [place] - Dr. Pacheco and Dr. Reynoso. Unfortunately no transportation available tonight so patient will be admitted to [facility] and transferred in the AM #Hyponatremia - Ux=[id number]. Asymptomatic. Patient reports poor oral intake today. -Check urine and serum osmolality -Check urine Na -LR at 100mL/hr x 2L -Repeat chemistry in AM #Diabetes - Well controlled. Last [id number] on 09/22/2024. Patient on Metformin -Hold Metformin -ISS, goal blood sugar 110 - 140 #CAD - no chest pain -Hold ASA for now -Hold Zetia and Pravastatin for now -Continue Metoprolol 100mg po qAM #JULIO CESAR -CPAP qHS History of Present Illness Chief Complaint: jaundice Primary Care Provider: Elida Rogers DO Sam Rodriguez is a pleasant 69yo male with history of DM, HLP and CAD presenting with jaundice and scleral icterus noted yesterday 10/25/24. Patient with history of epigastric pain with radiation to the back. He had and MRCP performed in September which showed dilated proximal to mid common duct with no filling defect. He had an EGD and ERCP performed on 10/05/2024 and ultimately had a laparoscopic cholecystectomy performed for symptomatic cholelithiasis by Dr. Cuello on 10/17/2024. The surgery went well with no complications identified. Pathology revealed mild, chronic cholecystitis with no calculi. Patient reports he has been doing fairly well since having the surgery, although his recover has seemed slower than he anticipated. He had some constipation after his surgery but did have a normal BM on 10/24/24. He has some mild RUQ discomfort as well as bloating. Today his noted that he was yellow in color - skin, eyes. He also has had dark colored urine. Patient denies pain at present, no nausea, no fever/chills/shakes. No additional complaints at this time. In the ER he is afebrile, HD stable. ER Course: Zosyn Allergies Allergy/AdvReac Type Severity Reaction Status Date / Time atorvastatin AdvReac Intermediate MYALGIA Verified 10/12/24 12:14 rosuvastatin AdvReac Intermediate myalgia Verified 10/12/24 12:14 simvastatin AdvReac Intermediate MYALGIA Verified 10/12/24 12:14 Home Medications Medication Instructions Recorded Confirmed Type aspirin 81 mg tablet 81 mg PO QAM #30 tabs 10/20/18 10/26/24 History cetirizine 10 mg capsule (Zyrtec) 10 mg PO HS 10/20/18 10/26/24 History coenzyme Q10 100 mg capsule 100 mg PO QAM 10/20/18 10/26/24 History triamcinolone acetonide 55 mcg 2 sprays intranasal HS 06/02/19 10/26/24 History nasal spray aerosol (Nasacort) CPAP Machine #1 ea 06/05/22 10/26/24 Rx albuterol sulfate 90 mcg/actuation 2 puff inhalation Q6H PRN 08/02/24 10/26/24 Rx aerosol inhaler shortness of breath or wheezing #8.5 grams nitroglycerin 0.4 mg sublingual 0.4 mg sublingual Q5M PRN chest 08/02/24 10/26/24 Rx tablet pain #25 tabs CPAP Supplies #1 ea 08/04/24 10/26/24 Rx metformin 500 mg tablet,extended 1,000 mg (2 x 500 mg) PO BID 90 08/31/24 10/26/24 Rx release 24 hr days #360 tabs metoprolol succinate 100 mg 100 mg PO QAM #90 tabs 10/04/24 10/26/24 Rx tablet,extended release 24 hr pravastatin 40 mg tablet 40 - 80 mg PO QAM 10/12/24 10/26/24 History ezetimibe 10 mg tablet (Zetia) 10 mg PO QAM 10/17/24 10/26/24 History niqyuefriki-hxi-ezipabcpt-vitC 1 cap PO QPM 10/26/24 10/26/24 History capsule (Glucosamine Complex-MSM capsule) omega-3 fatty acids 1,000 mg 1,000 mg PO QPM 10/26/24 10/26/24 History capsule Past Med/Surg History Problem List Abdominal pain (Acute) Elevated bilirubin (Acute) Transaminitis (Acute) Acute hyponatremia (Acute) History of cholecystectomy Cholelithiasis Encounter for pre-operative examination Transaminitis (Acute) Abnormal CT scan, gallbladder Abdominal bruit Noted by cardiology - had subsequent aorti-iliac arterial duplex 08/10/24- showed 3.3 x 3.4cm AAA, no stenosis or obstruction observed in Ao-iliac system Microalbuminuria History of radiation to head and neck region History of squamous cell carcinoma Left knee pain Left hip pain Type 2 diabetes mellitus Obstructive sleep apnea cpap Anemia, unspecified ASCVD (arteriosclerotic cardiovascular disease) Inferior [place] 2014--follows with Dr. Saldaña Hyperlipidemia History of colon polyps Medical History AAA (abdominal aortic aneurysm) Aorti-iliac arterial duplex 08/10/24- showed 3.3 x 3.4cm AAA, no stenosis or obstruction observed in Ao-iliac system Chronic hyponatremia Choledocholithiasis - Admitted to [facility] as transfer from [facility]- ERCP 10/05/24 at [facility]- per [facility] records- recommending outpatient juanpablo Hyperlipidemia Hx of myocardial infarction (2014) 2015--heart cath, no stents-follows with Dr. Saldaña ASCVD (arteriosclerotic cardiovascular disease) follows w/ Dr Saldaña- had recent echo 09/27/2024 History of anemia denies current issues JULIO CESAR (obstructive sleep apnea) states lost weight after cancer treatments, so has resolved but still uses CPAP Diabetes well controlled, last A1C 5.8, per patient History of radiation to head and neck region (2020) 33 treatments Seasonal allergies reason for prn inhaler, rare use prn inhaler - last used 2 years ago Changing skin lesion Squamous cell carcinoma of oropharynx (2020) hx- 2020- s/p chemo XRT Dry mouth severe dry mouth s/p chemotherapy & radiation treatments. - current History of chemotherapy (01/2021) January 2021. Allergic rhinitis History of anesthesia reaction - difficulty waking - ERCP (10/05/24) - had 3 days of feeling "off balance"- has now resolved Osteoarthritis Sensorineural hearing loss (SNHL) of both ears Eczema occ flares Asymmetrical left sensorineural hearing loss Surgical History Hx of endoscopic retrograde cholangiopancreatography (10/05/24) oma aiken- states took over 2 hours as difficulty getting to bile duct- afterwards, had balance issue for a few days after, has now resolved History of cataract surgery (2021) Right/Left History of cardiac cath (~12/21/14) [place]-@ [facility]--no stents- follows with dr. saldaña History of tooth extraction on prophylactic abx every other day since 12/2023 ( last dental extraction) History of hydrocelectomy as a child History of colonoscopy with polypectomy (08/26/24) History of wisdom tooth extraction Family History Unknown Unknown family medical history Mother Myocardial infarction Diabetes Father No problems noted. Other Adopted Social History Smoking Status: Never smoker Tobacco Type: Cigarettes Cigarettes Per Day: smokes a pipe- advised; Second Hand Exposure: No; Do You Dip or Chew Tobacco: No; Hx Alcohol Use: Yes Alcohol type: beer Alcohol Intake Frequency: 4 or More x per/Week Hx Substance Use: No Preferred Language: Polish Communication Ability: Effective Visual Impairment: Limited Hearing Ability: Normal Hoop Cutter Required: No Beliefs That Will Affect Care: None marital status: Current Living Situation: Spouse current occupational status: retired current occupation: customer service How many Children do You have: 0 Feels Safe at Home: Yes Childhood Exposure to Second-Hand Smoke: Yes Diet: regular caffeine: Yes during the past year weight has: decreased > 10 lbs Dental Care, Regularly: Yes Physical Activity Frequency: 3-4 Times per Week Seatbelt Use: always Sunscreen Use: No Assistive Devices: Glasses Review of Systems Review of Systems: All systems reviewed & are unremarkable except as noted in HPI & below Physical Exam Physical Exam: General: patient resting comfortably, NAD, non-toxic in appearance, AA&O x 4 Skin: +Jaundice HEENT: NC/AT, PERRL, EOMI, +Scleral icterus and jaundice of oral mucosa, conjunctiva without injection, external ear normal to inspection and nontender, nares patent, moist mucus membranes, dentition intact, no oropharyngeal lesions, neck supple, trachea midline, no LAD, no thyromegaly, no JVD Heart: +S1/S2, regular, no m/r/g Lungs: equal air entry bilaterally, no rales/rhonchi/wheezes Abd: +BS, soft, ND, no masses/organomegaly/ascites, lower abdominal bruising, trocar surgical sites well approximated with no bleeding/erythema/drainage or dehiscence Ext: warm, 2+ pulses in UE/LE bilaterally, no clubbing/cyanosis or edema Neuro: nonfocal, patient AA&O x 4, speech intact, no facial droop, moving all extremities on command with equal strength 5/5 Results & Data Results & Data Vital Signs (Past 12 Hours) Vital Signs Temp Pulse Pulse Resp BP BP Pulse Ox 10/26/24 01:00 64 16 124/70 99 10/26/24 00:15 63 19 99 10/26/24 00:01 134/69 10/25/24 23:00 136/71 10/25/24 22:57 63 19 99 10/25/24 21:35 68 10/25/24 21:24 71 16 100 10/25/24 21:21 36.8 C 69 16 156/73 H 99 10/25/24 21:13 36.5 C 70 20 154/71 H 99 O2 Del Method 10/26/24 01:00 Room Air 10/26/24 00:15 Room Air 10/26/24 00:01 10/25/24 23:00 10/25/24 22:57 Room Air 10/25/24 21:35 10/25/24 21:24 Room Air 10/25/24 21:21 Room Air 10/25/24 21:13 Room Air Laboratory Results Laboratory Results WBC 6.00 K/ul (4.8-10.8) 10/25/24 21:35 RBC 4.15 M/uL (4.70-6.10) L 10/25/24 21:35 Hgb 13.5 g/dl (14.0-18.0) L 10/25/24 21:35 POC Hgb 15.0 g/dl (14.0-18.0) 10/25/24 21:42 Hct 36.0 % (42.0-52.0) L 10/25/24 21:35 POC Hct 44 % (42-52) 10/25/24 21:42 MCV 86.7 fL (80.0-100.0) 10/25/24 21:35 MCH 32.5 pg (25.0-34.0) 10/25/24 21:35 MCHC 37.5 g/dL (32.0-36.0) H 10/25/24 21:35 RDW Std Deviation 48.2 fL (36.4-46.3) H 10/25/24 21:35 RDW Coeff of Aminata 15.2 % (11.5-14.5) H 10/25/24 21:35 Plt Count 375 K/uL (130-400) 10/25/24 21:35 MPV 8.5 fL (9.4-12.4) L 10/25/24 21:35 Immature Gran % (Auto) 1.7 % 10/25/24 21:35 Neut % (Auto) 73.3 % 10/25/24 21:35 Lymph % (Auto) 6.7 % 10/25/24 21:35 Garden % (Auto) 13.3 % 10/25/24 21:35 Eos % (Auto) 5.0 % 10/25/24 21:35 Baso % (Auto) 0.0 % 10/25/24 21:35 Neut # (Auto) 4.40 K/uL (1.40-6.50) 10/25/24 21:35 Lymph # (Auto) 0.40 K/uL (1.20-3.40) L 10/25/24 21:35 Garden # (Auto) 0.80 K/uL (0.11-0.59) H 10/25/24 21:35 Eos # (Auto) 0.30 K/uL (0.00-0.50) 10/25/24 21:35 Baso # (Auto) 0.00 K/uL (0.00-0.20) 10/25/24 21:35 Immature Gran # (Auto) 0.10 K/uL (0.01-0.20) 10/25/24 21:35 Anisocytosis Present 10/25/24 21:35 Target Cells 1+ 10/25/24 21:35 POC Sodium 123 mmol/L (135-144) L 10/25/24 21:42 Sodium 122 mmol/L (136-145) L 10/25/24 21:35 POC Potassium 4.6 mmol/L (3.3-5.0) 10/25/24 21:42 Potassium 4.6 mmol/L (3.5-5.1) 10/25/24 21:35 POC Chloride 89 mmol/L (101-112) L 10/25/24 21:42 Chloride 87 mmol/L (98-107) L 10/25/24 21:35 Carbon Dioxide 24 mmol/L (21-32) 10/25/24 21:35 POC Total CO2 25 mmol/L (24-31) 10/25/24 21:42 Anion Gap 11 (3-11) 10/25/24 21:35 POC Anion Gap 15.0 mmol/L (16-25) L 10/25/24 21:42 POC BUN 19 mg/dl (7-18) H 10/25/24 21:42 BUN 18 mg/dl (6-23) 10/25/24 21:35 Creatinine 0.95 mg/dl (0.6-1.4) 10/25/24 21:35 POC Creatinine 0.9 mg/dl (0.6-1.3) 10/25/24 21:42 Est Cr Clr Drug Dosing 81.1 ml/min 10/25/24 21:35 eGFR 86.11 10/25/24 21:35 BUN/Creatinine Ratio 18.9 (10-20) 10/25/24 21:35 Glucose 162 mg/dl (70-99(Fasting)) H 10/25/24 21:35 POC Glucose (other) 156 mg/dl (70-99) H 10/25/24 21:42 Osmolality 266 mOsm/kg (280-300) L 10/25/24 21:45 Calcium 9.5 mg/dl (8.6-10.3) 10/25/24 21:35 POC Ioniz Calcium Macario 1.17 mmol/l (1.12-1.32) 10/25/24 21:42 Total Bilirubin 16.8 mg/dl (0.2-1.0) H 10/25/24 21:35 Direct Bilirubin 11.8 mg/dl (0-0.2) H 10/25/24 21:35 AST 436 U/L (13-39) H 10/25/24 21:35 ALT 589 U/L (7-52) H 10/25/24 21:35 Alkaline Phosphatase 1218 U/L (34-104) H 10/25/24 21:35 Total Protein 6.8 gm/dl (6.0-8.3) 10/25/24 21:35 Albumin 3.7 gm/dl (3.4-5.0) 10/25/24 21:35 Globulin 3.1 gm/dl (2.5-4.0) 10/25/24 21:35 Albumin/Globulin Ratio 1.2 (0.9-2) 10/25/24 21:35 Lipase TNP 10/25/24 21:35 Urine Osmolality 362 mOsm/kg (500-800) L 10/25/24 Unknown Ur Random Sodium 17 mmol/L 10/25/24 Unknown Urine Comment 10/25/24 Unknown Impressions Abdomen/Pelvis CT 10/25/24 21:25 Exam(s): CT ABDOMEN + PELVIS With Contrast IV Amt: 90 ml optiray 320 EXAM: CT Abdomen and Pelvis With Intravenous Contrast CLINICAL HISTORY: Reason for exam: post op pain. TECHNIQUE: Axial computed tomography images of the abdomen and pelvis with intravenous contrast. CTDI is 26.14 mGy and DLP is 1236.28 mGy-cm. Automated exposure control was utilized for the study. A dose lowering technique was utilized adhering to the principles of ALARA. CONTRAST: Patient received 90 ml optiray 320 of IV contrast COMPARISON: 10/04/2024 FINDINGS: Lung bases: Unremarkable. No mass. No consolidation. ABDOMEN: Liver: Unremarkable. No mass. Gallbladder and bile ducts: Postop changes prior cholecystectomy this is new when compared with the prior exam. There is intra and extrahepatic biliary ductal dilatation which is greater than expected given the patient's operative state. The common bile duct measures 1.5 cm. Hyperdense material seen within the proximal duodenum may represent surgical clips. Pancreas: Unremarkable. No mass. No ductal dilation. Spleen: Unremarkable. No splenomegaly. Adrenals: Unremarkable. No mass. Kidneys and ureters: Unremarkable. No solid mass. No hydronephrosis. Stomach and bowel: There are number of fluid-filled hyperemic loops of small bowel within the right lower quadrant. No obstruction. No mucosal thickening. PELVIS: Appendix: No findings to suggest acute appendicitis. Bladder: Unremarkable. No mass. Reproductive: Enlarged partially calcified prostate. ABDOMEN and PELVIS: Intraperitoneal space: Unremarkable. No free air. No significant fluid collection. Bones/joints: No acute fracture. No dislocation. Soft tissues: Unremarkable. Vasculature: 3.6 cm infrarenal abdominal aortic aneurysm. Lymph nodes: Unremarkable. No enlarged lymph nodes. IMPRESSION: Postoperative changes interval gallbladder resection with greater than expected distention of the intra and extra hepatic bile ducts. There is the suggestion of subtle narrowing of the distal common bile duct near the ampulla with numerous surgical clips seen within the proximal duodenum. MRCP may be helpful for further evaluation to exclude obstructing stone 3.6 cm infrarenal abdominal aortic aneurysm unchanged from prior study Numerous hyperemic fluid-filled loops of small bowel within the right lower quadrant. Findings may represent enteritis in the appropriate clinical setting . Electronically signed by: Deshaun Beal MD 10/25/24 23:23 PM Code Status & VTE Plan VTE Prophylaxis Plan VTE Prophylaxis will be ordered: Yes PG Care Time/CCT Total # of Minutes Spent Total Time Spent with Patient: Total time spent is greater than 50% in coordination of care (as documented) at patient's floor/unit and/or counseling patient: Coding Level of Care Code 92233 INT INP/OBS CARE 3/75MIN Diagnoses Elevated bilirubin R17 Transaminitis R74.01 Acute hyponatremia E87.1 History of cholecystectomy Z90.49 Type 2 diabetes mellitus E11.9 Obstructive sleep apnea G47.33 Hyperlipidemia E78.5
--- NOTE | 2024-10-26 03:26 | Magnetic Resonance Report ---
EXAM: MR MRCP CLINICAL HISTORY: elevated bilirubin/AP, recent cholecystectomy. TECHNIQUE: Multiplanar multisequence magnetic resonance imaging of the abdomen without intravenous contrast. COMPARISON: None. FINDINGS: There is magnetic susceptibility artefact superposing on the portal hilus, pancreatic head and neck region along with mid abdomen, which interferes the evaluation of the distal choledoc and pancreatic head level. Liver: The liver measures 19 cm in craniocaudal span. The posterior segment of the right lower lobe shows Nayan lobe variation, thus, the enlargement of the liver span is secondary to Nayan lobe variation. Homogeneous signal intensity on T2-weighted images. No focal hepatic lesions. Gallbladder: Gallbladder is not seen (likely secondary to surgical removal. Bile Ducts: Intrahepatic and extrahepatic bile ducts shows mild dilatation. Common bile duct is visible only on the proximal 2/3 segment. Distal 1/3 segment cannot be evaluated due to artefacts. The CBD measures 15 mm without significant evidence of strictures or filling defects. No evidence of choledocholithiasis in the visualized CBD. Pancreas: The head and neck region with proximal body cannot be evaluated due to artefacts. The remaining pancreas is normal in size and contour with homogeneous signal intensity on T2-weighted images. No masses or cystic lesions. Pancreatic Duct: Pancreatic duct is normal in caliber in the visualized segments No evidence of ductal dilatation or filling defects. Spleen: Normal size and appearance. Homogeneous signal intensity. Kidneys: Normal size, shape, and position of both kidneys. Homogeneous signal intensity on T2-weighted images. No renal stones, masses, or hydronephrosis. 23 mm parapelvic cyst in the right kidney. There are a few cortical cysts in both kidney up to 6 mm on the right and upto 15 mm on the left. Adrenal Glands: Normal size and morphology bilaterally. No adrenal masses. Surrounding Structures: There is mild perihepatic ascites. Normal appearance of the visualized bowel loops. IMPRESSION: 1. Suboptimal MRCP examination due to artefacts. 2. Dilatation of the intra and extraheptic bile ducts with CBD without significant pathology. Distal 1/3 of the CBD cannot be assessed. It might be secondary to cholecystectomy. CT and/or US correlation recommended. 3. Mild perihepatic ascites. 4. Other findings are in the report. Electronically signed by Gino Malhotra 10-26-2024 03:25 AM
[2024-10-26] MEDS ORDERED: CARBOHYDRATES FOR HYPOGLYCEMIA PO PRN (03:57)
[2024-10-26] MEDS ORDERED: DOCUSATE SODIUM 100 MG CAP PO PRN (03:57)
[2024-10-26] MEDS ORDERED: GLUCOSE 10 TAB/TUBE PO PRN (03:57)
[2024-10-26] MEDS ORDERED: ONDANSETRON INJ 2 MG/ML 2 ML VIAL IV PRN (03:57)
[2024-10-26] MEDS ORDERED: POLYETHYLENE (MIRALAX) 17 GM PACK PO PRN (03:57)
[2024-10-26] MEDS ORDERED: GLUCAGON FOR INJ 1 MG VIAL SQ PRN (03:57)
[2024-10-26] MEDS ORDERED: GLUCOSE 40% GEL 15 GM TUBE PO PRN (03:57)
[2024-10-26] MEDS ORDERED: ALBUTEROL HFA 8 GM INHALER INH PRN (03:57)
[2024-10-26] MEDS ORDERED: DEXTROSE 50% 50 ML SYRINGE IV PRN (03:57)
[2024-10-26] MEDS: LACTATED RINGER'S 1,000 ML IV SCH (04:27)
[2024-10-26] MEDS: INSULIN ASPART PER UNIT CHARGE SC SCH (06:25)
[2024-10-26 06:28] LABS: Appearance Urine Clear (Clear); Bacteria Urine Automated None Seen (None Seen); Cast Urine Automated 0-2 /lpf (0-2); Epithelial Cell Urine Auto 0-2 /hpf (0-2); Glucose Urine UA Negative (Negative); RBC Urine Automated 0-2 /hpf (0-2); WBC Urine Automated 0-5 /hpf (0-5)
[2024-10-26] MEDS: PIPERACILLIN/TAZOBACTAM 4.5 GM/100 ML BAG IV SCH (06:41)
[2024-10-26] MEDS: METOPROLOL SUCC 50MG EXT REL TAB PO SCH (08:20)
--- NOTE | 2024-10-26 09:28 | Discharge Summary ---
Discharge Summary Date of Service October 26, 2024 Principal Dx & Hospital Course #1 = Principal Diagnosis (1) Elevated bilirubin: (2) Transaminitis: (3) Acute hyponatremia: (4) History of cholecystectomy: (5) Type 2 diabetes mellitus: (6) Obstructive sleep apnea: (7) Hyperlipidemia: Plan 69yo male with history of DM, HLP, CAD, recent laparoscopic cholecystectomy performed on 10/17/24 presenting with jaundice/icterus and hyponatremia. #Elevated bilirubin/Transaminitis/Recent laparoscopic cholecystectomy - Tbili=16.8, Dbili=11.8, HB=7657, AXX=107 and SFM=516. Patient with recent cholecystectomy. CT findings as above with dilation of the intra and extra hepatic bile ducts with numerous surgical clips present in the proximal duodenum. -Admit to medical with telemetry -Obtain MCRP -Keep NPO for now -LR at 100mL/hr x 2L ordered -Zofran PRN nausea -Zosyn 4.5gm IV q 8 hours -Repeat LFTs in AM -Appreciate General Surgery assistance -Patient has been accepted to [facility] in [place] - Dr. Pacheco and Dr. Reynoso. Unfortunately no transportation available tonight so patient will be admitted to [facility] and transferred in the AM #Hyponatremia - Uz=903. Asymptomatic. Patient reports poor oral intake today. -Check urine and serum osmolality -Check urine Na -LR at 100mL/hr x 2L -Repeat chemistry in AM #Diabetes - Well controlled. Last [id number] on 09/22/2024. Patient on Metformin -Hold Metformin -ISS, goal blood sugar 110 - 140 #CAD - no chest pain -Hold ASA for now -Hold Zetia and Pravastatin for now -Continue Metoprolol 100mg po qAM #JULIO CESAR -CPAP qHS Admission HPI Per Admitting Provider Sam Rodriguez is a pleasant 69yo male with history of DM, HLP and CAD presenting with jaundice and scleral icterus noted yesterday 10/25/24. Patient with history of epigastric pain with radiation to the back. He had and MRCP performed in September which showed dilated proximal to mid common duct with no filling defect. He had an EGD and ERCP performed on 10/05/2024 and ultimately had a laparoscopic cholecystectomy performed for symptomatic cholelithiasis by Dr. Cuello on 10/17/2024. The surgery went well with no complications identified. Pathology revealed mild, chronic cholecystitis with no calculi. Patient reports he has been doing fairly well since having the surgery, although his recover has seemed slower than he anticipated. He had some constipation after his surgery but did have a normal BM on 10/24/24. He has some mild RUQ discomfort as well as bloating. Today his noted that he was yellow in color - skin, eyes. He also has had dark colored urine. Patient denies pain at present, no nausea, no fever/chills/shakes. No additional complaints at this time. In the ER he is afebrile, HD stable. ER Course: Zosyn Discharge Exam GENERAL APPEARANCE NAD, activity normal for age, well developed/ well nourished, no cyanosis, pallor, or diaphoresis. EYES lids/conjunctiva normal. EARS/NOSE/THROAT Mucous membranes moist, nares normal, lips/teeth normal uvula midline without oral pharyngeal erythema, exudate or swelling TMs normal bilaterally. No lymphangitis/lymphedema. HEAD/NECK normocephalic atraumatic, no facial trauma, neck is supple. RESPIRATORY respiratory effort normal, speaks in full sentences, no tripod position, no accessory muscle use. Lungs clear to auscultation without rhonchi, wheezes, rales CARDIAC Regular rate and rhythm, no edema. ABDOMINAL Soft, ND/NT. No evidence of fluid wave. No pulsatile masses on exam, rebound tenderness, Elliott sign or pain over Mcburney's point. MUSCLES/EXTREMITIES No abnormal range of motion, no swelling. SKIN Jaundice NEUROLOGICAL Speech is clear and appropriate. Normal level of consciousness. Gait and coordination are normal. 5/5 strength in all extremities. PSYCH Normal mood and affect. Judgement/competence is appropriate Discharge Plan Discharge Items Patient Disposition: Transfer Acute Care Hospital Reason For Visit: ELEVATED BILIRUBIN/AP, S/P AVEL Discharge Diagnosis: dilation of intra and extra hepatic bile ducts Condition on Discharge: Fair Activity: Resume your previous activity Non-emergency contact: Primary Care Provider Follow-up/Referrals: Elida Rogers DO [Primary Care Provider] - Diet: Nothing by Mouth Addtl Attending Provider Instructions: Pt being transfered to [place] for ERCP Pending Studies at Discharge: No Stand-Alone Forms: My [facility] Skilled Items Patient informed of condition?: No DNR: No Discharge Level of Care: Other Communicable Disease: No Discharge Prognosis: Stable Lines: None Urinary Catheter: No Medications and DC Order Prescriptions: Continued (DME) CPAP Machine Misc See Rx Instructions .ROUTE .MEDSUPPLY Qty: 1 0RF Rx Instructions: AUTO CPAP 4-15CM WATER PRESSURE; DX: G47.33; LENGTH OF NEED: 99MONTHS (DME) CPAP Supplies Misc See Rx Instructions .Route Qty: 1 0RF Rx Instructions: As directed metformin 500 mg tablet extended release 24 hr 1,000 mg PO BID 90 Days Qty: 360 3RF aspirin 81 mg tablet 81 mg PO QAM Qty: 30 coenzyme Q10 100 mg capsule 100 mg PO QAM Zyrtec 10 mg capsule 10 mg PO HS triamcinolone acetonide [Nasacort] 55 mcg aerosol,spray 2 sprays INTNAS HS albuterol sulfate 90 mcg/actuation HFA aerosol inhaler 2 puff inhalation Q6H PRN (Reason: shortness of breath or wheezing) Qty: 8.5 2RF nitroglycerin 0.4 mg tablet, sublingual 0.4 mg sublingual Q5M PRN (Reason: chest pain) Qty: 25 5RF metoprolol succinate 100 mg tablet extended release 24 hr 100 mg PO QAM Qty: 90 3RF pravastatin 40 mg tablet 40 - 80 mg PO QAM Rx Instructions: 1 pill alternating with 2 pills every other day PO daily in the morning; 2 TABS ON // 1 TAB ALL OTHER DAYS ezetimibe [Zetia] 10 mg tablet 10 mg PO QAM Glucosamine Complex-MSM Capsule 1 cap PO QPM omega-3 fatty acids 1,000 mg Capsule 1,000 mg PO QPM Discharge Orders: Discharge Order (Routine); Ordered 10/26/24 Ordered By: Piyush Simon Admission Data Admit Date/Time: 10/26/24 01:22 Attending Provider: Betzy Ballesteros Admit Provider: Betzy Ballesteros Primary Care Provider: Elida Rogers Other Providers: Shawn Quiroz; Betzy Ballesteros Hospital Stay Data Consultations 10/25/24 21:55 Consult General Surgery Stat 10/26/24 01:09 ED Decision to Admit Stat Diagnostic Imagining Performed 10/25/24 21:25 CT abd pelvis IV con only Stat 10/26/24 01:22 MRI MRCP [MR MRCP] Stat Pending Results Patient Have Any Pending Studies at Discharge: No Discharge Instructions Given to Patient (Per Discharging Provider) Pt being transfered to [place] for ERCP Total Time Total Time Spent Total Time Spent (In Minutes): 50 Coding Level of Care Code 52314 INP/OBS DISCH >30 MIN Diagnoses Elevated bilirubin R17 Transaminitis R74.01 Acute hyponatremia E87.1 History of cholecystectomy Z90.49 Type 2 diabetes mellitus E11.9 Obstructive sleep apnea G47.33 Hyperlipidemia E78.5
[2024-10-26 11:57] VITALS: PULSE 57; RESP 18; TEMP 98.1; O2SAT 97
[2024-10-26 16:29] VITALS: BP 152/72
--- NOTE | 2024-10-27 12:12 | Coding Query ---
CODING QUERY To promote full compliance with coding requirements relating to patient care, provider participation is requested in all cases of test borer uncertainty. Please assist us with the question(s) below: Coding Question(s): Elevated bilirubin/Transaminitis/Recent laparoscopic cholecystectomy, and Jaundice/icterus are documented through the record and on Discharge Summary, There is documentation of, "CT findings as above with dilation of the intra and extra hepatic bile ducts with numerous surgical clips present in the proximal duodenum", and the Discharge Summary documents, at the bottom, "Discharge Diagnosis: dilation of intra and extra hepatic bile ducts". Please specify below, in your clinical opinion, regarding the most likely cause of elevated bilirubin/tansaminitis, jaundice/icterus: ( x) Elevated bilirubin/Transaminitis, Jaundice/icterus are most likely due to dilation of intra and extra hepatic bile ducts. Please specify further below, in your clinical opinion: ( x) most likely a complication from the recent laparoscopic cholecystectomy ( ) not a complication from the recent laparoscopic cholecystectomy ( ) Elevated bilirubin/Transaminitis, Jaundice/icterus are most likely due Other: Please Specify . Please specify further below, in your clinical opinion: ( ) most likely a complication from the recent laparoscopic cholecystectomy ( ) not a complication from the recent laparoscopic cholecystectomy ( ) Elevated bilirubin/Transaminitis, Jaundice/icterus, not due to dilation of intra and extra hepatic bile ducts, but are most likely complication of recent laparoscopic cholecystectomy. ( ) Elevated bilirubin/Transaminitis, Jaundice/icterus unspecified/unknown most likely cause and Not a complication from the recent laparoscopic cholecystectomy ( ) Other: Please Specify Physician's Response(s): Thank you Gaby Mg Principal Diagnosis: "that condition established after study, to be chiefly responsible for occasioning the admission of the patient to the hospital for care." Co-Existing Principal Diagnosis: "when two or more diagnoses equally meet the criteria for principal diagnosis as determined by the circumstances of admission, diagnostic work up, and/or therapy provided, and the Alphabetic Index, Tabular List, or another coding guideline does not provide sequencing direction, any one of the diagnoses may be sequenced first." "When the physician has documented what appears to be a current diagnosis in the body of the record, but has not included the diagnosis in the final diagnostic statement, the physician should be asked whether the diagnosis should be added." (Source Coding Clinic 2 QTR90. p3-4) RAVINDER
== END 2024-10-26 17:00 | disposition short-term general hospital (02) | DRG 394 ==
LOC: SUATTDRO → ED 21:11 → 2N 10-26 01:22